=== PATIENT | male | born 1945 ===

== ENCOUNTER 2021-04-03 15:36 | Outpatient (CLI) | payer MEDICARE, BC | END 2021-04-03 15:37 | disposition home or self-care (01) | LOC: BICCT 15:36 | PROVIDERS: ATTEND Psychiatry & Neurology Neurology | DX: R25.1 Tremor, unspecified (principal) | CPT/HCPCS: 70450 ==

== ENCOUNTER 2021-12-18 09:08 | Outpatient (CLI) | payer MEDICARE, BC ==
[2021-12-18] MEDS ORDERED: Magnevist 469MG/ML 20 ML VIAL ONE (16:03)
== END 2021-12-18 09:09 | disposition home or self-care (01) ==
LOC: MRI 09:08
PROVIDERS: ATTEND Otolaryngology Plastic Surgery within the Head & Neck
DX: H90.3 Sensorineural hearing loss, bilateral (principal); H81.4 Vertigo of central origin
CPT/HCPCS: 70553; 82565; A9579